=== PATIENT | male | born 1995 | race Caucasian/White ===

== ENCOUNTER 2021-07-06 10:41 | Emergency (ER) | payer OTHER ==
[~2021-07-06] VITALS: Ht 182.9 cm; Wt 112.9 kg
[2021-07-06] MEDS ORDERED: CYCLOBENZAPRINE HCL 10 MG TABLET PO ONE (12:00)
[2021-07-06] MEDS ORDERED: KETOROLAC 30MG VIAL (30MG/ML) IM ONE (12:00)
[2021-07-06 12:12] VITALS: BP 151/88
[2021-07-06] MEDS ORDERED: METH4TAB PO (13:00)
[2021-07-06] MEDS ORDERED: NAPR-1196 PO (13:00)
== END 2021-07-06 13:12 | disposition home or self-care (01) ==
LOC: EDH 10:41
DX: M62.830 Muscle spasm of back (principal); Z95.810 Presence of automatic (implantable) cardiac defibrillator
CPT/HCPCS: 72072; 72100; 93005; 96372; 99284; J1885